=== PATIENT | female | born 1935 | race African-American/Black ===

== ENCOUNTER 2022-12-23 14:45 | Inpatient (IN) | payer OTHER ==
[2022-12-23 16:44] LABS: BASO % 0.5 % (0-2.0); EOS % 1.3 % (0-4.5); HEMATOCRIT 35.4 % (32.4-45.2); HEMOGLOBIN 11.7 GM/dL (10.7-15.3); LYMPH % 29.6 % (8-40); MCH 28.5 pg (25.7-33.7); MEAN CELL VOLUME 86.3 fl (80-96); MEAN PLT VOLUME 8.4 fl (7.5-11.1); NEUT % 62.6 % (42.8-82.8); PLATELET COUNT 228 10^3/uL (134-434); RDW 17.6 % (11.6-15.6); WHITE BLOOD COUNT 5.1 K/mm3 (4.0-10.0)
[2022-12-23 17:03] LABS: CALCIUM 8.9 mg/dL (8.5-10.1)
[2022-12-23 17:04] LABS: ALBUMIN 3.1 g/dl (3.4-5.0); BLOOD UREA NITROGEN 7.5 mg/dL (7-18)
[2022-12-23 17:07] LABS: CREATININE 0.7 mg/dL (0.55-1.3)
[2022-12-23 17:08] LABS: BILIRUBIN,TOTAL 0.6 mg/dL (0.2-1); TOT PROT 6.4 g/dl (6.4-8.2)
[2022-12-23 17:57] LABS: PH,URINE 6.5 (5.0-8.0); URINE APPEARANCE CLEAR; URINE BILIRUBIN NEGATIVE (NEGATIVE); URINE COLOR YELLOW; URINE GLUCOSE (UA) NEGATIVE (NEGATIVE); URINE KETONE NEGATIVE (NEGATIVE); URINE LEUK ESTERASE NEGATIVE (NEGATIVE); URINE NITRITE NEGATIVE (NEGATIVE); URINE PROTEIN TRACE (NEGATIVE)
[2022-12-24] MEDS ORDERED: GLYCERIN 1 RECTAL SUPPOSITORY, ADULT PR ONE (03:37)
[2022-12-24] MEDS ORDERED: QUEtiapine FUMARATE 25 MG TABLET PO PRN (04:13)
[2022-12-24] MEDS ORDERED: LORazepam 2 MG/ML SDV VIAL IVPUSH PRN (04:28)
[2022-12-24] MEDS ORDERED: MINERAL OIL ENEMA 133 ML ENEMA RC PRN (04:52)
[2022-12-24 07:10] LABS: BASO % 0.6 % (0-2.0); HEMATOCRIT 37.5 % (32.4-45.2); HEMOGLOBIN 12.3 GM/dL (10.7-15.3); LYMPH % 13.1 % (8-40); MCH 28.3 pg (25.7-33.7); MCHC 32.7 g/dl (32.0-36.0); MEAN CELL VOLUME 86.6 fl (80-96); MEAN PLT VOLUME 8.6 fl (7.5-11.1); MONO % 2.4 % (3.8-10.2); NEUT % 83.9 % (42.8-82.8); PLATELET COUNT 136 10^3/uL (134-434); RBC 4.33 M/mm3 (3.60-5.2); RDW 17.5 % (11.6-15.6); WHITE BLOOD COUNT 7.4 K/mm3 (4.0-10.0)
[2022-12-24 07:12] LABS: ALBUMIN 3.4 g/dl (3.4-5.0); BLOOD UREA NITROGEN 11.3 mg/dL (7-18); CALCIUM 8.9 mg/dL (8.5-10.1)
[2022-12-24 07:15] LABS: CREATININE 0.6 mg/dL (0.55-1.3); PHOSPHOROUS 3.4 mg/dL (2.5-4.9)
[2022-12-24 07:16] LABS: BILIRUBIN,TOTAL 0.7 mg/dL (0.2-1); TOT PROT 6.6 g/dl (6.4-8.2)
[2022-12-24] MEDS ORDERED: MINERAL OIL ENEMA 133 ML ENEMA RC ONE (11:05)
[2022-12-24] MEDS: ENOXAPARIN NA (PORCINE) 40 MG/0.4 ML DISP.SYRIN SQ SCH (11:11)
[2022-12-24] MEDS: POLYETHYLENE GLYCOL (HEALTHYLAX) 3350 17 GM PACKET PO SCH ×2 (11:11→21:36)
[2022-12-24] MEDS: DEXTROSE 5%-LACTATED RINGERS 1,000 ML IV SCH (11:43)
[2022-12-24] MEDS: levETIRAcetam 500 MG/5 ML INJECTION VIAL IVPB SCH (21:36)
[2022-12-25 08:02] LABS: EOS % 1.3 % (0-4.5); HEMATOCRIT 34.4 % (32.4-45.2); HEMOGLOBIN 11.5 GM/dL (10.7-15.3); LYMPH % 42.2 % (8-40); MCHC 33.5 g/dl (32.0-36.0); MEAN CELL VOLUME 86.4 fl (80-96); MONO % 10.9 % (3.8-10.2); NEUT % 44.6 % (42.8-82.8); RBC 3.99 M/mm3 (3.60-5.2); RDW 17.5 % (11.6-15.6); WHITE BLOOD COUNT 4.8 K/mm3 (4.0-10.0)
[2022-12-25 08:10] LABS: MEAN PLT VOLUME 7.9 fl (7.5-11.1)
[2022-12-25 08:28] LABS: ALBUMIN 3.1 g/dl (3.4-5.0); BLOOD UREA NITROGEN 10.6 mg/dL (7-18); MAGNESIUM 1.9 mg/dL (1.8-2.4)
[2022-12-25 08:30] LABS: CREATININE 0.6 mg/dL (0.55-1.3)
[2022-12-25 08:31] LABS: PHOSPHOROUS 2.8 mg/dL (2.5-4.9)
[2022-12-25 08:32] LABS: BILIRUBIN,TOTAL 0.9 mg/dL (0.2-1)
[2022-12-25] MEDS: POLYETHYLENE GLYCOL (HEALTHYLAX) 3350 17 GM PACKET PO SCH ×2 (10:00→21:58)
[2022-12-25] MEDS: ENOXAPARIN NA (PORCINE) 40 MG/0.4 ML DISP.SYRIN SQ SCH (10:47)
[2022-12-25] MEDS: levETIRAcetam 500 MG/5 ML INJECTION VIAL IVPB SCH (10:47)
[2022-12-25] MEDS: DEXTROSE 5%-LACTATED RINGERS 1,000 ML IV SCH (12:00)
[2022-12-25 19:52] VITALS: BMI 19.3
[2022-12-25] MEDS: DIVALPROEX SODIUM 125 MG SPRINKLE CAPS PO SCH (21:52)
[2022-12-26 07:46] LABS: HEMATOCRIT 33.7 % (32.4-45.2); HEMOGLOBIN 11.4 GM/dL (10.7-15.3); MCHC 33.7 g/dl (32.0-36.0); MEAN CELL VOLUME 85.9 fl (80-96); MEAN PLT VOLUME 7.6 fl (7.5-11.1); PLATELET COUNT 148 10^3/uL (134-434); RBC 3.93 M/mm3 (3.60-5.2); WHITE BLOOD COUNT 3.9 K/mm3 (4.0-10.0)
[2022-12-26 08:03] LABS: CALCIUM 8.6 mg/dL (8.5-10.1)
[2022-12-26 08:04] LABS: BLOOD UREA NITROGEN 6.3 mg/dL (7-18)
[2022-12-26 08:06] LABS: CREATININE 0.5 mg/dL (0.55-1.3)
[2022-12-26 08:08] LABS: TOT PROT 5.9 g/dl (6.4-8.2)
[2022-12-26 08:09] LABS: BILIRUBIN,TOTAL 0.9 mg/dL (0.2-1)
[2022-12-26] MEDS: POLYETHYLENE GLYCOL (HEALTHYLAX) 3350 17 GM PACKET PO SCH ×2 (10:08→21:37)
[2022-12-26] MEDS: ENOXAPARIN NA (PORCINE) 40 MG/0.4 ML DISP.SYRIN SQ SCH (10:08)
[2022-12-26] MEDS: DIVALPROEX SODIUM 125 MG SPRINKLE CAPS PO SCH ×2 (10:08→21:37)
[2022-12-26] MEDS: DEXTROSE 5%-LACTATED RINGERS 1,000 ML IV SCH (14:06)
[2022-12-27] MEDS ORDERED: hydrALAZINE HCL 20 MG/ML VIAL IVPUSH PRN (10:00)
[2022-12-27] MEDS: LISINOPRIL 20 MG TABLET PO SCH (10:27)
[2022-12-27] MEDS: ENOXAPARIN NA (PORCINE) 40 MG/0.4 ML DISP.SYRIN SQ SCH (10:28)
[2022-12-27] MEDS: POLYETHYLENE GLYCOL (HEALTHYLAX) 3350 17 GM PACKET PO SCH ×2 (10:28→21:27)
[2022-12-27] MEDS: DIVALPROEX SODIUM 125 MG SPRINKLE CAPS PO SCH ×2 (10:29→21:27)
[2022-12-27] MEDS: DEXTROSE 5%-LACTATED RINGERS 1,000 ML IV SCH ×2 (18:48→22:50)
[2022-12-28] MEDS: DIVALPROEX SODIUM 125 MG SPRINKLE CAPS PO SCH ×3 (10:30→21:02)
[2022-12-28] MEDS: LISINOPRIL 20 MG TABLET PO SCH ×2 (10:30→10:38)
[2022-12-28] MEDS: ENOXAPARIN NA (PORCINE) 40 MG/0.4 ML DISP.SYRIN SQ SCH (10:38)
[2022-12-28] MEDS: POLYETHYLENE GLYCOL (HEALTHYLAX) 3350 17 GM PACKET PO SCH ×2 (10:40→21:02)
[2022-12-28] MEDS: DEXTROSE 5%-LACTATED RINGERS 1,000 ML IV SCH (10:42)
[2022-12-29] MEDS: DEXTROSE 5%-LACTATED RINGERS 1,000 ML IV SCH ×2 (01:32→15:21)
[2022-12-29 07:44] LABS: BASO % 0.1 % (0-2.0); EOS % 0.4 % (0-4.5); HEMATOCRIT 33.7 % (32.4-45.2); HEMOGLOBIN 11.2 GM/dL (10.7-15.3); LYMPH % 20.8 % (8-40); MCH 28.8 pg (25.7-33.7); MCHC 33.1 g/dl (32.0-36.0); MEAN CELL VOLUME 86.8 fl (80-96); MEAN PLT VOLUME 9.8 fl (7.5-11.1); MONO % 12.7 % (3.8-10.2); PLATELET COUNT 176 10^3/uL (134-434); RBC 3.88 M/mm3 (3.60-5.2); RDW 16.9 % (11.6-15.6); WHITE BLOOD COUNT 5.9 K/mm3 (4.0-10.0)
[2022-12-29 07:52] LABS: CALCIUM 8.6 mg/dL (8.5-10.1)
[2022-12-29 07:54] LABS: ALBUMIN 2.8 g/dl (3.4-5.0)
[2022-12-29 07:56] LABS: CREATININE 0.5 mg/dL (0.55-1.3)
[2022-12-29 07:58] LABS: TOT PROT 5.7 g/dl (6.4-8.2)
[2022-12-29] MEDS: POLYETHYLENE GLYCOL (HEALTHYLAX) 3350 17 GM PACKET PO SCH ×2 (09:32→22:58)
[2022-12-29] MEDS: ENOXAPARIN NA (PORCINE) 40 MG/0.4 ML DISP.SYRIN SQ SCH (09:32)
[2022-12-29] MEDS: DIVALPROEX SODIUM 125 MG SPRINKLE CAPS PO SCH ×2 (09:33→22:59)
[2022-12-29] MEDS: LISINOPRIL 20 MG TABLET PO SCH (09:33)
[2022-12-29] MEDS ORDERED: METOPROLOL TARTRATE 5 MG/5 ML VIAL IVPUSH PRN (14:51)
[2022-12-30 07:47] LABS: BASO % 0.3 % (0-2.0); EOS % 2.4 % (0-4.5); HEMATOCRIT 35.4 % (32.4-45.2); HEMOGLOBIN 11.4 GM/dL (10.7-15.3); LYMPH % 31.6 % (8-40); MCH 28.2 pg (25.7-33.7); MCHC 32.2 g/dl (32.0-36.0); MEAN CELL VOLUME 87.7 fl (80-96); MEAN PLT VOLUME 8.5 fl (7.5-11.1); MONO % 13.3 % (3.8-10.2); NEUT % 52.4 % (42.8-82.8); PLATELET COUNT 137 10^3/uL (134-434); RBC 4.03 M/mm3 (3.60-5.2); RDW 17.4 % (11.6-15.6)
[2022-12-30 08:17] LABS: CALCIUM 8.4 mg/dL (8.5-10.1)
[2022-12-30 08:18] LABS: ALBUMIN 2.5 g/dl (3.4-5.0); BLOOD UREA NITROGEN 4.7 mg/dL (7-18)
[2022-12-30 08:22] LABS: CREATININE 0.4 mg/dL (0.55-1.3)
[2022-12-30 08:23] LABS: BILIRUBIN,TOTAL 0.8 mg/dL (0.2-1); TOT PROT 5.2 g/dl (6.4-8.2)
[2022-12-30] MEDS: POLYETHYLENE GLYCOL (HEALTHYLAX) 3350 17 GM PACKET PO SCH ×2 (11:39→23:35)
[2022-12-30] MEDS: ENOXAPARIN NA (PORCINE) 40 MG/0.4 ML DISP.SYRIN SQ SCH (11:39)
[2022-12-30] MEDS: DIVALPROEX SODIUM 125 MG SPRINKLE CAPS PO SCH (11:39)
[2022-12-30] MEDS: DEXTROSE 5%-LACTATED RINGERS 1,000 ML IV SCH (11:39)
[2022-12-30] MEDS: LISINOPRIL 20 MG TABLET PO SCH (11:39)
[2022-12-31 06:03] VITALS: RESP 18
[2022-12-31] MEDS: LISINOPRIL 20 MG TABLET PO SCH (09:08)
[2022-12-31] MEDS: DIVALPROEX SODIUM 125 MG SPRINKLE CAPS PO SCH ×2 (09:08)
[2022-12-31] MEDS: POLYETHYLENE GLYCOL (HEALTHYLAX) 3350 17 GM PACKET PO SCH (09:08)
[2022-12-31 09:10] VITALS: BP 163/78; PULSE 80; TEMP 97.1
== END 2022-12-31 10:17 | disposition home or self-care (01) | DRG 100 ==
LOC: JER 14:45 → JERBED 12-24 01:44 → J4W 12-24 08:54
PROVIDERS: ADMIT Internal Medicine
DX: G40.909 Epilepsy, unspecified, not intractable, without status epilepticus (principal); R53.2 Functional quadriplegia; R64 Cachexia; Z68.1 Body mass index [BMI] 19.9 or less, adult; F03.94 Unspecified dementia, unspecified severity, with anxiety; D25.9 Leiomyoma of uterus, unspecified; K43.9 Ventral hernia without obstruction or gangrene; K56.41 Fecal impaction; F39 Unspecified mood [affective] disorder; I10 Essential (primary) hypertension; Z74.01 Bed confinement status
CPT/HCPCS: 36415; 70450-TC; 74177-TC; 80053; 80061; 81003; 82550; 82553; 82962; 83036; 83605; 83690; 83735; 84100; 84132; 84443; 84484; 85025; 85027; 87086; 93005; 93010; 95816; 97161-GP; 99285-25; C9803-CS; Q9967; U0003; U0005